=== PATIENT | male | born 1960 | race Caucasian/White ===

== ENCOUNTER 2020-12-10 03:56 | Emergency (ER) | payer OTHER ==
[~2020-12-10] VITALS: Ht 167.6 cm; Wt 63.5 kg
[~2020-12-10 03:56] MED LIST: KETO10TA2 PO
[2020-12-10] MEDS ORDERED: DEPAKOTE ER500 MG (04:09)
[2020-12-10] MEDS ORDERED: ALLEGRA ALLERG180 MG PO (04:52)
[2020-12-10] MEDS ORDERED: KETO10TA2 PO (12:59)
== END 2020-12-10 04:59 | disposition home or self-care (01) ==
LOC: ER 03:56
DX: R09.81 Nasal congestion (principal)

== ENCOUNTER 2020-12-10 11:31 | Emergency (ER) | payer OTHER ==
[~2020-12-10] VITALS: Ht 167.6 cm; Wt 57.2 kg
[~2020-12-10 11:31] MED LIST changes: +ALLEGRA ALLERG180 MG PO; +DEPAKOTE ER500 MG
[2020-12-10] MEDS ORDERED: KETO10TA2 PO (12:59)
== END 2020-12-10 13:02 | disposition home or self-care (01) ==
LOC: ER 11:31
DX: S60.221A Contusion of right hand, initial encounter (principal); M79.641 Pain in right hand; W22.8XXA Striking against or struck by other objects, initial encounter; Y93.89 Activity, other specified; Y92.832 Beach as the place of occurrence of the external cause; Y99.8 Other external cause status

== ENCOUNTER 2020-12-19 07:38 | Emergency (ER) | payer OTHER ==
[~2020-12-19] VITALS: Ht 167.6 cm; Wt 54.4 kg
[2020-12-19] MEDS ORDERED: MUPIROCIN22 GM TOP (09:11)
[2020-12-19] MEDS ORDERED: ORPHENADRINE C100 MG PO (09:12)
[2020-12-19] MEDS ORDERED: ZYPREXA20 MG PO (09:24)
[2020-12-20] MEDS ORDERED: KETO10TA2 PO (09:25)
== END 2020-12-19 09:35 ==
LOC: ER 07:38
DX: S30.810A Abrasion of lower back and pelvis, initial encounter (principal); S43.491A Other sprain of right shoulder joint, initial encounter; Y08.89XA Assault by other specified means, initial encounter; Y93.89 Activity, other specified; Y92.89 Other specified places as the place of occurrence of the external cause; Y99.8 Other external cause status

== ENCOUNTER 2020-12-20 08:30 | Emergency (ER) | payer OTHER ==
[~2020-12-20] VITALS: Ht 165.1 cm; Wt 54.4 kg
[~2020-12-20 08:30] MED LIST changes: +MUPIROCIN22 GM TOP; +ORPHENADRINE C100 MG PO; +ZYPREXA20 MG PO
[2020-12-20] MEDS ORDERED: KETO10TA2 PO (09:25)
== END 2020-12-20 10:01 | disposition home or self-care (01) ==
LOC: ER 08:30
DX: M79.641 Pain in right hand (principal)